=== PATIENT | female | born 1970 | race Caucasian/White ===

== ENCOUNTER 2025-05-06 20:55 | Inpatient (IN) | payer BC, SELFPAY ==
[2025-05-06] VITALS (13 sets, daily range): BP systolic 108–146; BP diastolic 70–104; BMI 38.2; BMI 37.8
--- NOTE | 2025-05-06 15:16 | ED.GENMED ---
History of Present Illness
General
Chief Complaint: Heart Rate Problem
Source: patient
Exam Limitations: none
Time Seen by Provider: 05/06/25 14:46
History of Present Illness
History of Present Illness:
54yoF with a history of bipolar disorder and PTSD presenting for evaluation of abdominal pain. Patient started to become sick last weekend with chills and subjective fevers. Tmax was 99. She was initially constipated and started taking Senokot
and bowel movements have since regulated. She has been vomiting the past few days. She is able to tolerate p.o. intake for a short amount of time and states her vomiting comes in waves. She has also been experiencing pain primarily in her
epigastric and right upper quadrant regions. Of note, patient was seen by her PCP recently and mentioned her right upper quadrant pain during her visit. She was given a prescription for an outpatient gallbladder ultrasound which she did not
schedule yet. Patient was hospitalized about 1.5 years ago at [facility] for liver failure from Tylenol overdose.
Phy Exam
General Physical Exam
General Presentation: well appearing and no apparent distress
General Skin: warm and dry
General Habitus: normal
General Mental: alert
ENT Exam
ENT Exam: normocephalic
Cardiovascular Exam
Cardiovascular Exam: tachycardia
Pulmonary Exam
Pulmonary Exam: lungs clear, no respiratory distress, no rales, no crackles, no rhonchi and no wheezing
Gastrointestinal Exam
Gastrointestinal Exam: soft, non distended and other (+Tenderness in RUQ. Abdomen soft, non-distended. No rebound or guarding.)
Neurological Exam
Neurological Exam: alert
[place] Coma Scale
Eye Opening: Spontaneous
Verbal Response: Oriented
Motor Response: Obeys Commands
GCS Total Score: 15
Skin Exam
Skin Exam: normal color and warm/dry
Psychiatric Exam
Psychiatric Exam: normal mood/affect
Course
Orders/Labs/Results
Orders:
Orders
05/06/25 14:19
Electrocardiogram (*1) Urgent
Reason for Study: Tachycardia
EKG- Treatment ONCE
05/06/25 15:04
0.9% Sodium Chloride 1000 ml [Nss] 1,000 ml IV BOLUS
Ondansetron Injectable [Zofran] 4 mg IV NOW STA
US Abdomen Complete/Upper Urgent
Comment:
Reason For Exam: RUQ pain
05/06/25 15:25
CMP [Comprehensive Metabolic Panel] Urgent
COVID-19 Antigen Urgent
Source: Nasal Swab
Complete Blood Count/With Diff Urgent
Lipase Urgent
Troponin I Urgent
Influenza A+B Rapid Molecular Urgent
PER Source: Nasal Swab
Specimen Description:
05/06/25 17:31
Urinalysis Reflex To Culture Urgent
Date Specimen was Collected: 05/06/25
Time Specimen was Collected: 17:29
Urine Microscopic Reflex Cult Urgent
Urine Culture Urgent
PER Source: U
Specimen Description:
Date Specimen was Collected: 05/06/25
Time Specimen was Collected: 17:29
05/06/25 17:34
CT Abd/pelvis W Iv Cont Urgent
Comment:
Reason For Exam: upper abd pain, leukocytosis
05/06/25 19:00
0.9% Sodium Chloride 1000 ml [Nss] 1,000 ml IV BOLUS
Ketorolac [Toradol] 30 mg IV NOW STA
Ondansetron Injectable [Zofran] 4 mg IV NOW STA
05/06/25 19:06
CefTRIAXone [Rocephin] 2,000 mg IV NOW STA
05/06/25 19:15
Blood Culture Q30M
PER Source: Blood/Venous
Specimen Description:
05/06/25 19:16
Sterile Water [Sterile Water For Injection] 20 ml .ROUTE .STK-MED
05/06/25 19:19
Lactate Level [Lactic Acid] Urgent
Blood Culture Q30M
PER Source: Blood/Venous
Specimen Description:
05/06/25 20:25
diazePAM [Valium Injection] 2 mg IV NOW STA
05/06/25 20:29
Admit/Transfer Patient As Directed
Co-Sign Provider:
Level of Care: Inpatient admission
Assign to:: Telemetry
Physician / Group: Victoriano
Diagnosis: Sepsis, Pyelo
Reason for Telemetry: Arrhythmia
Date to Stop Telemetry: 05/09/25
Time to Stop Telemetry: 11:00
Reason for Hospitalization: IVFs, IV abx
Expected length of stay greater than two midnights?: Yes
ELOS- Estimated Length of Stay in days: 3
I certify the patient meets the requirements for IP care: Yes
PRN Pain Medication Management As Directed
May give lesser potent ordered pain med per pt: Yes
preference::
Protocol:: Medication orders for pain may be administered in a
manner that supports deferring to patient preference
when the pt is:
- Requesting an ordered lesser potent pain medication.
Least to most potent pain medications are defined
as: acetaminophen < NSAID < tramadol < opioids
(morphine, oxycodone, hydromorphone).
- Requesting a lesser dose of the same medication IF
ORDERED.
- Requesting a less intrusive route of administration
if both routes are prescribed by the provider (PO <
IV).
05/06/25 20:30
Code Status As Directed
Resuscitation Status: Full Code
05/09/25 11:00
DC Protocol for Telemetry ONCE
Abnormal Lab Results
05/06/25 05/06/25 05/06/25
15:25 17:31 19:19
WBC 22.1 H 10^3/uL
(4.8-10.8)
RBC 4.01 L 10^6/uL
(4.20-5.40)
MCH 33.4 H pg
(27.0-31.0)
Abs Immat Gran (auto) 0.2 H 10^3/uL
(0-0.05)
Absolute Neuts (auto) 17.5 H 10^3/uL
(1.4-6.5)
Absolute Monos (auto) 2.5 H 10^3/uL
(0.1-0.6)
Immature Gran % 1.0 H %
(0-0.5)
Neutrophils % 79.4 H %
(42.2-75.2)
Lymphocytes % 8.0 L %
(20.5-51.1)
Monocytes % 11.3 H %
(1.7-9.3)
Glucose 139 H mg/dl
(70-99)
Lactic Acid 2.3 H mmol/L
(0.7-2.0)
Alkaline Phosphatase 132 H U/L
(38-126)
Lipase 22 L U/L
(23-300)
Ur Occult Blood Reflex 4+ A
(Negative)
Urine Nitrite (Reflex) Positive A
(Negative)
Leukocyte Esterase Rfl 3+ A
(Negative)
Urine RBC 7-10 A /HPF
(0-2)
Urine WBC (Reflex) 60-70 A /HPF
(0-5)
Urine Bacteria (Reflex) Moderate A
(Negative)
Urine Albumin (Reflex) 3+ A
(Neg - Trace)
05/06/25 15:25
05/06/25 15:25
Vital Signs
Initial and Last Documented VS:
Initial Vital Signs
Temp Pulse Resp Pulse Ox
98.6 F 129 18 95
05/06/25 14:12 05/06/25 14:12 05/06/25 14:12 05/06/25 14:12
Last Documented Vital Signs
Temp Pulse Resp BP Pulse Ox
102.3 F H 115 17 146/80 95
05/06/25 18:51 05/06/25 19:21 05/06/25 19:21 05/06/25 19:21 05/06/25 19:21
MDM/Problems Addressed
Differential Diagnosis Includes:
54yoF here with n/v, chills, and upper abd pain x 5-6 days. Temp 98.6 on arrival. HR 129. BP stable. She is well-appearing in no acute distress. There is epigastric and right upper quadrant tenderness on exam without signs of peritonitis.
Differential diagnosis includes but is not limited to: Cholecystitis, pancreatitis, viral illness
Initial ED plan: Check abdominal labs, troponin/EKG, COVID/flu swab, and upper abdominal ultrasound. IV Zofran and fluid bolus for symptoms.
*Pulse Oximetry
SaO2: 93
Oxygen Mode of Delivery: Room air
Patient hypoxic: no (95%)
*EKG
Interpreted by ED Provider?: Yes
EKG Intrepretation Date: 05/06/25
Heart Rate: 117
Rate: tachycardiac
Rhythm: sinus
[place]: normal axis
QRS Pattern: normal QRS
Ischemia: no ischemia
*Critical Care Note
Total Time (30-74mins, 75-104mins- exclusive of procedures): Not Applicable
Update Note
Update Note:
Labs reveal a significant leukocytosis with a white count of 22.1 with a left shift. Viral testing negative. Upper abdominal ultrasound shows fatty liver but otherwise negative. UA and CT abdomen ordered. UA is nitrite positive with 60-[address] shows severe acute bilateral pyelonephritis. Patient spiked a fever of 102.3 while in the emergency department and was having rigors on reassessment. Blood cultures, lactate, and IV Rocephin ordered. Patient admitted for further management.
ED Attending Note
-
Portions of this chart may have been created with voice recognition software.� Occasional wrong word or��sound alike� substitutions may have occurred due to the inherent limitations of voice recognition software.
Discharge Plan
Departure
Patient Disposition: Admit
Date of Disposition: 05/06/25
Time of Disposition: 19:59
Presentation/result/management discussed w/ accepting MD/DO: Hospitalist
Discharge Problem:
Sepsis, Pyelonephritis
Interventions
Interventions:
*Risk Screen - Suicide Last Done: 05/06/25 14:47
*General Assessment Last Done: 05/06/25 14:47
*Neglect/Abuse Screening Last Done: 05/06/25 14:47
*ED- Fall Risk Assessment Last Done: 05/06/25 14:48
*ED COVID-19 Vaccine History Last Done: 05/06/25 14:48
ED- Cardiac Assessment Last Done: 05/06/25 14:48
ED- Pulmonary Assessment Last Done: 05/06/25 14:48
[2025-05-06] MEDS: NSS 1000 IV ×3 (15:32→22:48)
[2025-05-06] MEDS: ZOFRAN 4 MG IV ×2 (15:33→19:07)
[2025-05-06 15:45] LABS: Hematocrit 38.3 % (37.0-47.0); Hemoglobin 13.4 g/dL (12.0-16.0); Mean Corp Hgb Conc. 35.0 g/dL (33.0-37.0); Mean Corpuscular Volume 95.5 fL (81.0-99.0); Nucleated Red Blood Cells % 0 %; Platelet Count 311 10^3/uL (130-400); Red Cell Dist. Width 13.2 % (11.5-14.5)
[2025-05-06 15:50] LABS: ALT (SGPT) 21 U/L (0-35); AST (SGOT) 27 U/L (14-36); Albumin 4.2 g/dl (3.5-5.0); Alkaline Phosphatase 132 U/L (38-126); Blood Urea Nitrogen 7 mg/dl (7-17); Calcium 9.3 mg/dl (8.4-10.2); Carbon Dioxide 23 mmol/L (22-30); Chloride 105 mmol/L (98-107); Estimated Creatinine Clearance 81 ml/min; Glucose 139 mg/dl (70-99); Lipase 22 U/L (23-300); Potassium 3.8 mmol/L (3.5-5.1); Sodium 138 mmol/L (135-145); Total Protein 7.5 g/dl (6.3-8.2); eGFR > 60.00
[2025-05-06 15:57] LABS: COVID-19 Antigen Negative (Negative)
[2025-05-06 15:58] LABS: Troponin I < 0.012 ng/ml
[2025-05-06 18:34] LABS: Urine Character Cloudy (Clear)
[2025-05-06 18:56] LABS: Urine Squamous Cell 0-2 /LPF (Few)
[2025-05-06 18:57] LABS: Urine White Cell 60-70 /HPF (0-5)
[2025-05-06] MEDS: TORADOL 30 MG IV (19:06)
[2025-05-06] MEDS: ROCEPHIN 2000 MG IV (19:21)
--- NOTE | 2025-05-06 20:40 | HPS.HSE ---
Addendum entered and electronically signed by Poncho Pastrana DO 05/06/25 21:03:
Patient seen and examined independently. Agree with findings and plan as set forth by Ashley Andrea PA-C.
Patient is a 54y F with PMH significant for Bipolar / anxiety who presents to complaining of R flank pain and shaking chills for about 5 days. Patient noted development of N/V and general weakness / malaise. Evaluation in the ED this evening
reveals bilateral pyelonephritis on CT scan with positive UA and SIRS / sepsis criteria.
Ass:
Bilateral Pyelonephritis
Sepsis secondary to the above
Bipolar Disorder / Anxiety / Depression
Plan:
Admit for further evaluation and treatment.
Patient presents with fever, tachycardia, leukocytosis and UA / CT scans consistent with pyelonephritis.
IV abx with ceftriaxone pending culture data.
IVF support.
PRN anxiolytics as patient is quite anxious at present.
Continue usual home medications.
Original Note:
Family Physician
-
Family Physician: Madalyn Berry,
Chief Complaint
-
Fever and Chills
History of Present Illness
Patient is a 54 y/o female past medical history of anxiety, depression, and PTSD who presents with fevers and chills. Patient reports symptoms started about 5 days ago initially with generalized weakness and fatigue. She reports she then developed
significant chills. She report associated right sided abdominal/flank pain, as well as nausea and vomting. She denies dysuria or urinary frequency.
Medical History
Past Medical History
Past Medical History: Reports Other
Additional Past Medical History:
Anxiety / Depression / Bipolar Disorder
PTSD
Past Surgical History: Reports
Social History
Tobacco: Smoker (3-4 cigarettes a day)
Alcohol: Occasional
Family History
Family History: Not pertinent
Allergies / Home Medications
Allergies reflects when Allergies were last updated in [facility].
Home Medications with original date entered in [facility]
Allergy/Medication List:
Allergies
Allergy/AdvReac Type Severity Reaction Status Date / Time
No Known Allergies Allergy Unverified 05/06/25 14:18
Home Medications
clonidine HCl 0.2 mg tablet 0.2 mg PO BID 05/06/25
lamotrigine 200 mg tablet 200 mg PO HS 05/06/25
trazodone 100 mg tablet 100 mg PO HS 05/06/25
Review of Systems
-
History Source: Patient
A 12 point ROS was completed and negative except as noted: Yes
Constitutional: Reports Fever and Chills
Respiratory: Denies Cough or Trouble Breathing
Cardiac: Denies Chest Pain or Palpitations
Abdomen/GI: Reports Abdominal Pain, Nausea and Vomiting; Denies Diarrhea or Constipated
: Reports See HPI
Physical Exam
Vital Signs
Vital Signs
Temp Pulse Resp BP Pulse Ox
102.3 F H 115 17 146/80 95
05/06/25 18:51 05/06/25 19:21 05/06/25 19:21 05/06/25 19:21 05/06/25 19:21
Physical Exam
General: Well Developed, Well Nourished and Conversant
HEENT: Anicteric and Moist mucous membranes
Respiratory: Clear and Non Labored Respirations
Cardiac: S1/S2 and Regular Rhythm
GI: Soft and Non Distended
Genito-urinary: Other (Right CVA)
Musculoskeletal: No Clubbing, No Cyanosis and No Edema
Skin: Warm and Dry
Neuro: Awake, Alert, Oriented and Nonfocal/grossly intact
Psych: Anxious
Laboratory Results
-
05/06/25 15:25
05/06/25 15:25
Laboratory Results
Lactic Acid 2.3 mmol/L (0.7-2.0) H 05/06/25 19:19
Total Bilirubin 0.9 mg/dl (0.2-1.3) 05/06/25 15:25
AST 27 U/L (14-36) 05/06/25 15:25
ALT 21 U/L (0-35) 05/06/25 15:25
Alkaline Phosphatase 132 U/L (38-126) H 05/06/25 15:25
Troponin I < 0.012 ng/ml 05/06/25 15:25
Lipase 22 U/L (23-300) L 05/06/25 15:25
Data Reviewed
-
Lab Data: Labs Reviewed by me
Impression/Plan
-
Sepsis secondary to Pyelonephritis
-Await urine and blood cultures
-Continue ceftriaxone
-Continue IVFs
-Continue clear liquids and advance as tolerated
Anxiety / Depression / Bipolar Disorder / PTSD
-Continue Clonidine, Lamotrigine, Trazodone
-Add Valium PRN until able to tolerate oral meds
DVT proph: SCDs
Code Status: Full Code
[2025-05-06] MEDS: VALIUM INJECTION 2 MG IV (20:54)
[2025-05-06] MEDS: TYLENOL 650 MG PO (21:05)
[2025-05-06] MEDS: DESYREL 100 MG PO (22:49)
[2025-05-06] MEDS: LAMICTAL 200 MG PO (22:49)
[2025-05-07] VITALS (7 sets, daily range): BP systolic 91–129; BP diastolic 58–76; BMI 37.8
--- NOTE | 2025-05-07 00:47 | PTCARENOTE ---
Pt. arrived to unit from ED via stretcher. Pt. able to safely ambulate into room 336-1 on . Pt. AAOx3 and able to make needs known. No c/o pain or discomfort. Oriented to unit. Call owusu within reach. Plan of care ongoing.
[2025-05-07] MEDS: MOTRIN 400 MG PO ×3 (03:27→19:55)
[2025-05-07] MEDS: VALIUM INJECTION 2 MG IV ×3 (05:53→20:45)
[2025-05-07] MEDS: TYLENOL 650 MG PO ×2 (05:54→17:21)
--- NOTE | 2025-05-07 07:56 | W.PN.HOSP.TC ---
Today's Communication/Plan
-
Continue antibiotics
Monitor urine output and Bladder Scans protocol
Assessment / Plan
Assessment / Plan
Physical Exam
General: Well Developed, Well Nourished and Conversant
HEENT: Anicteric and Moist mucous membranes
Respiratory: Clear and Non Labored Respirations
Cardiac: S1/S2 and Regular Rhythm
GI: Soft and Non Distended. Positive bowel sounds.
Genito-urinary: Other (Right CVA)
Musculoskeletal: No Cyanosis and No Edema
Skin: Warm and Dry
Neuro: Awake, Alert, Oriented and Nonfocal/grossly intact
Psych: Anxious
Assessment/Plan
54 y/o female with PMH significant for Bipolar / anxiety who presented to [facility] complaining of R flank pain and shaking chills for about 5 days. Patient noted development of N/V and general weakness / malaise. Evaluation in the ED revealed
bilateral pyelonephritis on CT scan with positive UA and SIRS/sepsis criteria.
Sepsis secondary to Severe Acute Bilateral Pyelonephritis (RT>LT)
Acute Cystitis
Bacteremia
-Follow cultures
-Ceftriaxone switched to Cefepime given positive blood cultures with gram negative organisms
-Complete current bag of IV fluids and then can monitor without IV fluids
-Continue regular diet
-Since contrasted CT did not show ureteral dilation and hydronephrosis, then no need for CT Abd/Pelvis without IV contrast or renal/bladder ultrasound. Without obstructing stones, management would not change
Anxiety / Depression / Bipolar Disorder / PTSD
-Continue Clonidine, Lamotrigine, Trazodone
-Add Valium PRN until able to tolerate oral meds
DVT Prophylaxis: SCDs. Lovenox.
Code Status: Full Code
Anticipated Discharge: > 48 hours
Subjective/Interval History
-
Date of Service: May 07, 2025
Patient was seen and examined. She was doing better, pain better, still not feeling well.
Objective Data
-
Labs:
Laboratory Results
05/07/25
06:00
WBC Pending
Hgb Pending
Hct Pending
Plt Count Pending
Sodium Pending
Potassium Pending
Chloride Pending
Carbon Dioxide Pending
BUN Pending
Creatinine Pending
Glucose Pending
Calcium Pending
Vital Signs:
Vital Signs
Temp Pulse Resp BP Pulse Ox
97.9 F 85 16 117/65 94
05/07/25 07:00 05/07/25 07:00 05/07/25 07:00 05/07/25 07:00 05/07/25 07:00
[2025-05-07] MEDS: CATAPRES PO ×2 (08:04→19:56)
[2025-05-07] MEDS: NSS 1000 IV ×2 (08:25→18:34)
[2025-05-07 08:31] LABS: Hematocrit 31.0 % (37.0-47.0); Hemoglobin 11.0 g/dL (12.0-16.0); Mean Corp Hgb Conc. 35.5 g/dL (33.0-37.0); Mean Corpuscular Volume 95.7 fL (81.0-99.0); Platelet Count 262 10^3/uL (130-400); Red Cell Dist. Width 13.5 % (11.5-14.5)
[2025-05-07 09:02] LABS: Blood Urea Nitrogen 9 mg/dl (7-17); Calcium 8.2 mg/dl (8.4-10.2); Carbon Dioxide 21 mmol/L (22-30); Chloride 112 mmol/L (98-107); Estimated Creatinine Clearance 80 ml/min; Glucose 106 mg/dl (70-99); Potassium 3.7 mmol/L (3.5-5.1); Sodium 142 mmol/L (135-145); eGFR > 60.00
[2025-05-07] MEDS: MAXIPIME 2000 MG IV ×2 (10:26→17:20)
[2025-05-07] MEDS: STERILE WATER FOR INJECTION 10 ML IV ×2 (10:27→17:21)
--- NOTE | 2025-05-07 13:14 | CON.ID ---
Consultation
-
Date/Time Consultation Requested: May 07, 2025 0910
Date/Time Consultation Performed: May 07, 2025 1315
Requesting Provider: Dr. Ezekiel Trevino
Performing Provider: Dr. Jelena Means
Reason for Consultation: UTI and bacteremia
Chief Complaint / Past History
Chief Complaint
Fever and chills
History of Present Illness
54-year-old female with history of bipolar disorder who presented to the hospital May 06 due to fevers. She started feeling unwell approximately 5 days prior to presentation with persistent fevers and chills. Positive weakness. No dysuria,
urgency or frequency. No nausea or vomiting. No diarrhea. She then developed right flank pain and came to the ER. Tmax 103.2. White count 22.1. Urine analysis positive nitrite, 3+ leukocyte esterase, 6-[address] of the abdomen
pelvis shows severe right greater than left acute pyelonephritis, acute cystitis. Admission blood cultures positive for E. coli. Initially she was on ceftriaxone then changed to cefepime. Patient reports she never had history of UTIs. She does
endorse wiping from back to front after bowel movements.
Past History
Additional Past Medical History:
Anxiety/depression
Bipolar disorder
PTSD
Additional Past Surgical History:
Allergy History:
No Known Allergies Allergy (Unverified 05/06/25 14:18)
Medications Reviewed: Yes
Current Antibiotics:
Cefepime
Social History
Tobacco: Smoker
Alcohol: Occasional
Drug: None
Family History
Family History: Not Pertinent
Review of Systems
Review of Systems
General: Fever, Chills and Change in Appetite
HEENT: Negative Sinus Problems or Headache
Cardiovascular: Negative Chest Pain or Dyspnea
Respiratory: Negative Dyspnea or Cough
Gasteroenterology: Negative Nausea, Vomiting or Diarrhea
Genital / Urological: Flank Pain; Negative Hematuria
Endocrine: Weakness
All systems: All other systems were reviewed and were negative
Vital Signs
Temp Pulse Resp BP Pulse Ox
97.8 F 83 16 124/72 92
05/07/25 11:00 05/07/25 11:00 05/07/25 11:00 05/07/25 11:00 05/07/25 11:00
Selected Entries
05/06/25
18:51 05/06/25
21:02
Temp 102.3 F H 103.2 F H
Physical Exam
Physical Exam
Constitutional: No Acute Distress
Eyes: No Conjunctival Hemorrhage and Sclera Anicteric
Cardiovascular: Regular Rate and S1/S2
Pulmonary: Clear
Gastrointestinal: Soft, Non Tender and Non Distended
Genito-Urinary: CVA Tenderness (Right)
Extremities: Negative Edema
Neurological: AO x 3
Lab / Diagnostic Study Results
05/07/25 08:12
05/07/25 08:12
Abs Immat Gran (auto) 0.2 10^3/uL (0-0.05) H 05/06/25 15:25
Absolute Neuts (auto) 17.5 10^3/uL (1.4-6.5) H 05/06/25 15:25
Absolute Lymphs (auto) 1.8 10^3/uL (1.2-3.4) 05/06/25 15:25
Absolute Monos (auto) 2.5 10^3/uL (0.1-0.6) H 05/06/25 15:25
Absolute Basos (auto) 0.1 10^3/uL (0-0.2) 05/06/25 15:25
Immature Gran % 1.0 % (0-0.5) H 05/06/25 15:25
Neutrophils % 79.4 % (42.2-75.2) H 05/06/25 15:25
Lymphocytes % 8.0 % (20.5-51.1) L 09/05/25 15:25
Monocytes % 11.3 % (1.7-9.3) H 05/06/25 15:25
Eosinophils % 0.0 % (0-6) 05/06/25 15:25
Basophils % 0.3 % (0-2) 05/06/25 15:25
Lactic Acid 0.9 mmol/L (0.7-2.0) 05/07/25 08:12
Ur Squamous Epith Cells 0-2 /LPF (Few) 05/06/25 17:31
Microbiology Results
Micro:
05/06/25 17:31 Urine Culture - Preliminary
Urine Gram negative bacilli
05/06/25 19:19 Blood Culture - Preliminary
Blood/Venous Escherichia coli
Gram Stain - Preliminary
05/06/25 19:15 Blood Culture - Preliminary
Blood/Venous Positive culture in progress
Gram Stain - Preliminary
05/06/25 15:25 Influenza Types A & B (AGA) - Final
Nasal Swab Negative for Influenza A & B, NAAT
Negative results must be combined with clinical observations
and patient history.
Nucleic Acid Amplification test (NAAT)performed on the
[employer] platform.
05/06/35 CT a/p: SEVERE ACUTE BILATERAL PYELONEPHRITIS (right greater than left). Acute cystitis.
Assessment / Plan
#Complicated UTI/pyelonephritis
# E. coli bacteremia x 2
# Fever
# Leukocytosis - worse
# Sepsis
-Ucx GNR
- Repeat blood cultures in a.m.
- Continue cefepime while awaiting data
- Trend temps/WBC.
- Counselling provided on proper perineal hygiene.
--- NOTE | 2025-05-07 14:02 | PTCARENOTE ---
Pt refusing compression stockings due to pt going to the bathroom frequently and independently. made aware via TT.
[2025-05-07] MEDS: LOVENOX 40 MG SC (19:56)
[2025-05-07] MEDS: DESYREL 100 MG PO (21:59)
[2025-05-07] MEDS: LAMICTAL 200 MG PO (21:59)
[2025-05-08] MEDS: MAXIPIME 2000 MG IV (02:05)
[2025-05-08] MEDS: STERILE WATER FOR INJECTION 10 ML IV (02:05)
[2025-05-08] MEDS: TYLENOL 650 MG PO ×4 (02:10→20:15)
[2025-05-08] MEDS: NSS 1000 IV (02:16)
[2025-05-08 03:00] VITALS: BP 127/76
[2025-05-08] MEDS: MOTRIN 400 MG PO ×4 (03:20→20:15)
[2025-05-08 06:00] VITALS: BMI 38.5
[2025-05-08 06:24] LABS: Hematocrit 32.6 % (37.0-47.0); Hemoglobin 11.0 g/dL (12.0-16.0); Mean Corp Hgb Conc. 33.7 g/dL (33.0-37.0); Mean Corpuscular Volume 96.2 fL (81.0-99.0); Nucleated Red Blood Cells % 0 %; Platelet Count 295 10^3/uL (130-400); Red Cell Dist. Width 13.9 % (11.5-14.5)
[2025-05-08 06:47] LABS: Blood Urea Nitrogen 10 mg/dl (7-17); Calcium 8.2 mg/dl (8.4-10.2); Carbon Dioxide 20 mmol/L (22-30); Chloride 115 mmol/L (98-107); Estimated Creatinine Clearance 93 ml/min; Glucose 102 mg/dl (70-99); Potassium 3.7 mmol/L (3.5-5.1); Sodium 142 mmol/L (135-145); eGFR > 60.00
[2025-05-08 07:35] VITALS: BP 131/67
[2025-05-08] MEDS: CATAPRES PO ×2 (07:40→19:48)
[2025-05-08] MEDS: VALIUM INJECTION 2 MG IV ×3 (07:41→20:16)
--- NOTE | 2025-05-08 10:12 | W.PN.ID1 ---
Date of Service
Date of Service: May 08, 2025
Today's Communication
-De-escalate cefepime to ceftriaxone.
Assessment / Plan
#Complicated UTI/pyelonephritis
# E. coli bacteremia x 2
# Fever resolved
# Leukocytosis - improving
# Sepsis
-Ucx E. coli
- Repeat blood cultures pending
-De-escalate cefepime to ceftriaxone.
- Trend WBC.
- Counselling provided on proper perineal hygiene.
Chief Complaint
-: UTI and Bacteremia
Subjective / Review of Systems
Has right side flank pain. Otherwise feels well.
Vital Signs / Physical Exam
Vital Signs
Vital Signs
Temp Pulse Resp BP Pulse Ox
98.6 F 82 14 131/67 97
05/08/25 07:35 05/08/25 07:35 05/08/25 07:35 05/08/25 07:35 05/08/25 07:35
Physical Exam
Constitutional: No Acute Distress and Comfortable
Cardiovascular: Regular Rate and S1/S2
Pulmonary: Clear
Gastrointestinal: Soft, Non Tender and Non Distended
Genito-Urinary: CVA Tenderness (Right mild)
Extremities: Negative Edema
Neurological: AO x 3
Objective Data
Lab Data
Lab Results
05/08/25 05:48
05/08/25 05:48
Estimated Creat Clear 93 ml/min 05/08/25 05:48
Lactic Acid 0.9 mmol/L (0.7-2.0) 05/07/25 08:12
Total Bilirubin 0.9 mg/dl (0.2-1.3) 05/06/25 15:25
AST 27 U/L (14-36) 05/06/25 15:25
ALT 21 U/L (0-35) 05/06/25 15:25
Alkaline Phosphatase 132 U/L (38-126) H 05/06/25 15:25
Most recent labs reviewed.
Micro Results:
05/06/25 19:15 Blood Culture - Preliminary
Blood/Venous Positive culture in progress
Gram Stain - Preliminary
05/06/25 19:19 Blood Culture - Preliminary
Blood/Venous Escherichia coli
Gram Stain - Preliminary
05/06/25 17:31 Urine Culture - Final
Urine Escherichia coli
05/08/25 07:16 Blood Culture - Pending
Blood/Venous
05/08/25 05:48 Blood Culture - Pending
Blood/Venous
05/06/25 15:25 Influenza Types A & B (AGA) - Final
Nasal Swab Negative for Influenza A & B, NAAT
Negative results must be combined with clinical observations
and patient history.
Nucleic Acid Amplification test (NAAT)performed on the
[employer] platform.
05/06/35 CT a/p: SEVERE ACUTE BILATERAL PYELONEPHRITIS (right greater than left). Acute cystitis.
Care Review
Plan reviewed with: Physician (Dr. Trevino)
[2025-05-08] MEDS: ROCEPHIN 2000 MG IV (10:49)
[2025-05-08] MEDS: STERILE WATER FOR INJECTION 20 ML IV (10:49)
[2025-05-08 11:04] VITALS: BP 141/76
--- NOTE | 2025-05-08 14:48 | W.PN.HOSP.TC ---
Today's Communication/Plan
-
Narrow antibiotics to Ceftriaxone
Patient feeling better overall
Assessment / Plan
Assessment / Plan
Physical Exam
General: Well Developed, Well Nourished and Conversant
HEENT: Anicteric and Moist mucous membranes
Respiratory: Clear and Non Labored Respirations
Cardiac: S1/S2 and Regular Rhythm
GI: Soft and Non Distended. Positive bowel sounds.
Genito-urinary: Other (Right CVA)
Musculoskeletal: No Cyanosis and No Edema
Skin: Warm and Dry
Neuro: Awake, Alert, Oriented and Nonfocal/grossly intact
Psych: Anxious
Assessment/Plan
54 y/o female with PMH significant for Bipolar / anxiety who presented to [facility] complaining of R flank pain and shaking chills for about 5 days. Patient noted development of N/V and general weakness / malaise. Evaluation in the ED revealed
bilateral pyelonephritis on CT scan with positive UA and SIRS/sepsis criteria.
Sepsis secondary to Severe Acute Bilateral Pyelonephritis (RT>LT)
Acute Cystitis
E. coli Bacteremia
-Follow repeat cultures
-Ceftriaxone switched to Cefepime (on 05/07/25) given positive blood cultures with gram negative organisms, but as of 05/08/25, Cefepime switched back to Ceftriaxone given results of the cultures
-Can monitor without further IV fluids since patient is eating and drinking well
-Continue regular diet
-Since contrasted CT did not show ureteral dilation and hydronephrosis, then no need for CT Abd/Pelvis without IV contrast or renal/bladder ultrasound. Without obstructing stones, management would not change
Anxiety / Depression / Bipolar Disorder / PTSD
-Continue Clonidine, Lamotrigine, Trazodone
-Add Valium PRN until able to tolerate oral meds
DVT Prophylaxis: SCDs. Lovenox.
Code Status: Full Code
Anticipated Discharge: 24 - 48 hours
Subjective/Interval History
-
Date of Service: May 08, 2025
Patient was seen and examined. She reported that her chills are gone. She still feels sore on the right side of her back.
Objective Data
-
Labs:
Laboratory Results
05/08/25
05:48
WBC 17.5 H
Hgb 11.0 L
Hct 32.6 L
Plt Count 295
Sodium 142
Potassium 3.7
Chloride 115 H
Carbon Dioxide 20 L
BUN 10
Creatinine 0.7
Glucose 102 H
Calcium 8.2 L
Vital Signs:
Vital Signs
Temp Pulse Resp BP Pulse Ox
98.5 F 80 14 141/76 95
05/08/25 11:04 05/08/25 11:04 05/08/25 11:04 05/08/25 11:04 05/08/25 11:04
I&O
05/07/25 05/08/25 05/09/25
06:59 06:59 06:59
Intake Total 1140 / 1140
Balance 1140 / 1140
[2025-05-08 15:03] VITALS: BP 124/76
[2025-05-08] MEDS: LOVENOX 40 MG SC (17:33)
--- NOTE | 2025-05-08 18:15 | PTCARENOTE ---
Pt given PRN Tylenol for headache, Motrin for continued R flank pain, and Valium for anxiety during shift with + effects. Pt states 'feeling better in general today'. Continues on Maxipime with no averse effects noted. Had visitors during shift, in
good spirits. Checked frequently throughout shift, call owusu within reach.
[2025-05-08 19:00] VITALS: BP 128/82
[2025-05-08] MEDS: LAMICTAL 200 MG PO (21:48)
[2025-05-08] MEDS: CATAPRES 0.2 MG PO (21:48)
[2025-05-08] MEDS: DESYREL 100 MG PO (21:48)
[2025-05-08 23:00] VITALS: BP 113/61
[2025-05-09] MEDS: MOTRIN 400 MG PO (01:51)
[2025-05-09 03:00] VITALS: BP 113/81
[2025-05-09 03:51] VITALS: BMI 38.6
[2025-05-09] MEDS: TYLENOL 650 MG PO ×2 (03:52→12:38)
[2025-05-09 05:59] LABS: Hematocrit 29.3 % (37.0-47.0); Hemoglobin 10.2 g/dL (12.0-16.0); Mean Corp Hgb Conc. 34.8 g/dL (33.0-37.0); Mean Corpuscular Volume 96.1 fL (81.0-99.0); Nucleated Red Blood Cells % 0 %; Platelet Count 308 10^3/uL (130-400); Red Cell Dist. Width 13.5 % (11.5-14.5)
[2025-05-09 06:13] LABS: Blood Urea Nitrogen 9 mg/dl (7-17); Calcium 8.9 mg/dl (8.4-10.2); Carbon Dioxide 22 mmol/L (22-30); Chloride 112 mmol/L (98-107); Estimated Creatinine Clearance 93 ml/min; Glucose 106 mg/dl (70-99); Potassium 4.0 mmol/L (3.5-5.1); Sodium 140 mmol/L (135-145); eGFR > 60.00
[2025-05-09 07:29] VITALS: BP 105/68
[2025-05-09] MEDS: CATAPRES 0.2 MG PO (07:48)
[2025-05-09] MEDS: VALIUM INJECTION 2 MG IV (07:49)
[2025-05-09] MEDS: ROCEPHIN 2000 MG IV (09:46)
[2025-05-09] MEDS: STERILE WATER FOR INJECTION 20 ML IV (09:46)
--- NOTE | 2025-05-09 10:20 | PN.CDI ---
CDI
- -
CDI:
Physician Documentation Request
Admit Date: 05/06/25 20:55
Dear Doctor Belinda,
Please review the following and provide your response in the progress notes.
Clinical Indicators:
Laboratory Tests
05/06/25 05/07/25 05/08/25
15:25 08:12 05:48
RBC 4.01 L 3.24 L 3.39 L
Hgb 13.4 11.0 L 11.0 L
Hct 38.3 31.0 L 32.6 L
05/09/25
05:23
RBC 3.05 L
Hgb 10.2 L
Hct 29.3 L
Based on the above and your clinical assessment, please clarify the most likely condition/diagnosis evaluated, monitored and/or treated?
Precipitous drop in hematocrit
Acute blood loss anemia
Abnormal lab value, clinically insignificant
Other(please specify)
Use of terms such as suspected, likely, concern for, or probable (associated with a specific diagnosis that is being evaluated, monitored, or treated as if it exists) are acceptable and can be coded in the inpatient setting, when documented at the
time of discharge.
Thank you,
Callie Diaz RN BSN CCDS
CDI Specialist
Please contact via tiger text
Please use your independent medical judgment in providing your response.
--- NOTE | 2025-05-09 10:32 | W.PN.HOSP.TC ---
Today's Communication/Plan
-
Discharge today
Assessment / Plan
Assessment / Plan
Physical Exam
General: Well Developed, Well Nourished and Conversant
HEENT: Normocephalic
Respiratory: Clear to Auscultation Bilaterally
Cardiac: S1/S2 and Regular Rhythm
GI: Soft and Non Distended. Positive bowel sounds.
Musculoskeletal: No Cyanosis and No Edema
Skin: Warm and Dry
Neuro: Awake, Alert, Oriented and Nonfocal/grossly intact
Psych: Anxious
Assessment/Plan
54 y/o female with PMH significant for Bipolar / anxiety who presented to [facility] complaining of R flank pain and shaking chills for about 5 days. Patient noted development of N/V and general weakness / malaise. Evaluation in the ED revealed
bilateral pyelonephritis on CT scan with positive UA and SIRS/sepsis criteria.
Sepsis secondary to Severe Acute Bilateral Pyelonephritis (RT>LT)
Complicated Urinary Tract Infection Secondary to Pyelonephritis
Acute Cystitis
E. coli Bacteremia
Fever - RESOLVED
Leukocytosis - RESOLVED
-Repeat blood cultures negative
-Ceftriaxone switched to Cefepime (on 05/07/25) given positive blood cultures with gram negative organisms, but as of 05/08/25, Cefepime switched back to Ceftriaxone given results of the cultures
-Transition ceftriaxone to Bactrim DS 1 tab po bid, start tomorrow am through 05/19/25.
-Counselling provided on proper perineal hygiene.
-Since contrasted CT did not show ureteral dilation and hydronephrosis, then no need for CT Abd/Pelvis without IV contrast or renal/bladder ultrasound. Without obstructing stones, management would not change
Anemia
-Recheck CBC outpatient. Also check outpatient CMP.
-Follow-up with PCP this week
Anxiety / Depression / Bipolar Disorder / PTSD
-Continue Clonidine, Lamotrigine, Trazodone
-Add Valium PRN until able to tolerate oral meds
DVT Prophylaxis: SCDs. Lovenox.
Code Status: Full Code
More than 30 minutes spent in discharge including
Final examination of the patient
Summarizing hospital stay
Instructions for continuing care to all relevant caregivers
Preparation of discharge records, prescriptions, and referral forms
Total time spent (in minutes): 36
Anticipated Discharge: Today
Subjective/Interval History
-
Date of Service: May 09, 2025
Patient was seen and examined. She reported her back soreness has improved, she reports feeling good and is looking forward to discharge today.
Objective Data
-
Labs:
Laboratory Results
05/09/25
05:23
WBC 9.8
Hgb 10.2 L
Hct 29.3 L
Plt Count 308
Sodium 140
Potassium 4.0
Chloride 112 H
Carbon Dioxide 22
BUN 9
Creatinine 0.7
Glucose 106 H
Calcium 8.9
Vital Signs:
Vital Signs
Temp Pulse Resp BP Pulse Ox
97.8 F 73 14 105/68 96
05/09/25 07:29 05/09/25 07:48 05/09/25 07:29 05/09/25 07:48 05/09/25 07:29
I&O
05/08/25 05/09/25 05/10/25
06:59 06:59 06:59
Intake Total 1140 / 1140 1320 / 1320
Balance 1140 / 1140 1320 / 1320
--- NOTE | 2025-05-09 10:47 | W.PN.ID1 ---
Date of Service
Date of Service: May 09, 2025
Today's Communication
- Transition ceftriaxone to Bactrim DS 1 tab po bid, start tomorrow am through 05/19/25.
Assessment / Plan
#Complicated UTI/pyelonephritis
# E. coli bacteremia x 2
# Fever resolved
# Leukocytosis - resolved
is
-Ucx E. coli
- Repeat blood cultures negative
- Transition ceftriaxone to Bactrim DS 1 tab po bid, start tomorrow am through 05/19/25.
- Counselling provided on proper perineal hygiene.
Chief Complaint
-: UTI and Bacteremia
Subjective / Review of Systems
Feels 100% better.
Vital Signs / Physical Exam
Vital Signs
Vital Signs
Temp Pulse Resp BP Pulse Ox
97.8 F 73 14 105/68 96
05/09/25 07:29 05/09/25 07:48 05/09/25 07:29 05/09/25 07:48 05/09/25 08:20
Physical Exam
Constitutional: No Acute Distress and Comfortable
Cardiovascular: Regular Rate and S1/S2
Pulmonary: Clear
Gastrointestinal: Soft, Non Tender and Non Distended
Genito-Urinary: Negative CVA Tenderness
Neurological: AO x 3
Objective Data
Lab Data
Lab Results
05/09/25 05:23
05/09/25 05:23
Estimated Creat Clear 93 ml/min 05/09/25 05:23
Lactic Acid 0.9 mmol/L (0.7-2.0) 05/07/25 08:12
Total Bilirubin 0.9 mg/dl (0.2-1.3) 05/06/25 15:25
AST 27 U/L (14-36) 05/06/25 15:25
ALT 21 U/L (0-35) 05/06/25 15:25
Alkaline Phosphatase 132 U/L (38-126) H 05/06/25 15:25
Most recent labs reviewed.
Micro Results:
05/06/25 19:15 Blood Culture - Final
Blood/Venous Escherichia coli
Gram Stain - Final
05/06/25 19:19 Blood Culture - Final
Blood/Venous Escherichia coli
Gram Stain - Final
05/08/25 07:16 Blood Culture - Preliminary
Blood/Venous No Growth in 24 hours- Final report to follow
05/08/25 05:48 Blood Culture - Preliminary
Blood/Venous No Growth in 24 hours- Final report to follow
05/06/25 17:31 Urine Culture - Final
Urine Escherichia coli
05/06/25 15:25 Influenza Types A & B (AGA) - Final
Nasal Swab Negative for Influenza A & B, NAAT
Negative results must be combined with clinical observations
and patient history.
Nucleic Acid Amplification test (NAAT)performed on the
[employer] platform.
05/06/35 CT a/p: SEVERE ACUTE BILATERAL PYELONEPHRITIS (right greater than left). Acute cystitis.
Care Review
Plan reviewed with: Physician
Total Time Spent with Patient (in minutes): Dr. Trevino
[2025-05-09 15:13] VITALS: BP 133/87
--- NOTE | 2025-05-09 16:06 | CM ---
Pt admitted via ED from home with acute pyelonephritis on 05/06/2025.
Pt is ambulatory in her room; plan for discharge to home today. will drive.
Plan: Discharge to home today on PO ABX with no identified needs.
== END 2025-05-09 16:45 | disposition home or self-care (01) | DRG 872 ==
LOC: 3 WEST ACU 20:55
PROVIDERS: Physician Assistant; Physician Assistant Medical; ADMITTING PHYSICIAN Hospitalist; ATTENDING PHYSICIAN Hospitalist; CONSULT PHYSICIAN Internal Medicine Infectious Disease; EMERGENCY PHYSICIAN Student in an Organized Health Care Education/Training Program; FAMILY PHYSICIAN Family Medicine
DX: A41.51 Sepsis due to Escherichia coli [E. coli] (principal); N10 Acute pyelonephritis; N30.00 Acute cystitis without hematuria; D64.9 Anemia, unspecified; F17.210 Nicotine dependence, cigarettes, uncomplicated; F31.9 Bipolar disorder, unspecified; F41.9 Anxiety disorder, unspecified; D72.829 Elevated white blood cell count, unspecified; F43.10 Post-traumatic stress disorder, unspecified; Z79.899 Other long term (current) drug therapy; Z11.52 Encounter for screening for COVID-19
CPT/HCPCS: 74177; 76700; 80048; 80053; 81003; 81015; 83605; 83690; 84484; 85025; 85027; 87040; 87077; 87086; 87154; 87186; 87205; 87502; 87811; 93005; 96361; 96374; 96375; 96376; 99285; Q9967